=== PATIENT | female | born 1950 | race Caucasian/White ===

== ENCOUNTER → 2018-07-06 | Outpatient (CLI) | payer OTHER, BC ==
[~2018-07-06] VITALS: Ht 157.5 cm; Wt 59.0 kg
[~2018-07-06] MED LIST: ACCUNEB SO1.25 MG/1 INH; ACYCLOVIR 800800 MG PO; BREO ELLIPTA 11 EACH INH; CYMBALTA60 MG PO; GABAPENTIN800 M1 PO; IRBESARTAN-HCT1 EAC1 PO; LOMOTIL TABLET1 EACH PO; METHOTREXATE 22.5 MG PO; OMEPRAZOLE 20 M20 M1 PO; SPIRIVA18 MCG INH
--- NOTE | ~2018-07-06 | P ---
[facility] [place] [address] PROCEDURE REPORT Name: ION NIX Room #: REG [facility]#: [id number] Admission: 07/06/18 Attend Phys: Rene Barnard MD Discharge: Date of : 46 Report #: [id number] THIS REPORT FOR: //name// CC: JOMAR Barnard DATE OF SERVICE: 07/06/2018 BRIEF HISTORY: The patient is a 67-year-old woman with history of longstanding reflux disease, on omeprazole. She has intermittent solid food dysphagia. In addition, she has had chronic diarrhea of greater than 3 weeks. POSTOPERATIVE DIAGNOSES: 1. Moderate antral gastritis. 2. Dysphagia. MEDICATIONS: Deep sedation with propofol per anesthesia. SPECIMENS: 1. Small bowel biopsies, rule out celiac disease. 2. Biopsies of gastritis. ESTIMATED BLOOD LOSS: 3 mL PROCEDURE: Esophagogastroduodenoscopy with biopsy. FINDINGS: Prior to propofol sedation, procedure of upper endoscopy was discussed with the patient as well as potential risks and its complications. She indicates she understands and desires to proceed. DESCRIPTION OF PROCEDURE: With the patient in left lateral decubitus position, Olympus video endoscope was inserted in the cervical esophagus under direct vision without difficulty. Examination of this organ through its entire length revealed normal esophageal mucosa down the squamocolumnar junction. The squamocolumnar junction was inspected and noted to be unremarkable. There was no evidence of ulcers, erosions, strictures, mass lesions or Hoffman esophagus. A significant hiatus hernia was not seen. The scope was advanced in the stomach, which was examined on end view as well as retroflexed views. There was some material in the stomach likely related to medications she probably took earlier today. A small amount of fluid was seen and aspirated away. The mucosa was intact throughout. Examination of mucosa revealed diffuse erythema in the antrum of the stomach; however, no ulcers or erosions were seen. Upon retroflexion, the mucosa was normal. The cardia was normal. No mass lesions were seen. The pylorus was normal. Duodenal bulb and postbulbar sweep down the third portion were inspected and noted to be unremarkable. At that point, the [facility] [address] [place] [address] PROCEDURE REPORT Name: ION NIX Room #: REG [facility]#: [id number] Admission: 07/06/18 Attend Phys: Rene Barnard MD Discharge: Date of : 46 Report #: [id number] scope was slowly withdrawn and careful circumferential views were obtained. We obtained small bowel biopsies to evaluate for celiac disease in view of her diarrhea and also gastric biopsies to evaluate for H. pylori. The scope was withdrawn. The patient tolerated the procedure well. Subsequently, she was dilated with passage of 52-Syriac Shaw dilator. There was no resistance. CONDITION OF THE PATIENT UPON DISCHARGE: Following procedure, the patient was drowsy and prepared for colonoscopy. INSTRUCTIONS TO THE PATIENT AND FAMILY AT THE TIME OF DISCHARGE: We will follow up on biopsies obtained today. She takes omeprazole 20 mg twice daily. I advised her to use the lowest dose to control her symptoms. For dysphagia, a definite stricture or ring was not seen. She is to return on an as needed basis for dilation of the esophagus due to recurrent symptoms of dysphagia. Proceed with colonoscopy at this time. By: 0848 1736 Rene Barnard MD /nt
--- NOTE | ~2018-07-06 | P ---
[facility] [place] [address] PROCEDURE REPORT Name: ION NIX Room #: REG [facility]#: [id number] Admission: 07/06/18 Attend Phys: Rene Barnard MD Discharge: Date of : 46 Report #: [id number] THIS REPORT FOR: //name// CC: DAE Barnard DATE OF SERVICE: 07/06/2018 BRIEF HISTORY: The patient is a 67-year-old woman with change in bowel habits with more than 3 months of loose and watery stools. PREOPERATIVE DIAGNOSIS: Change in bowel habits. POSTOPERATIVE DIAGNOSIS: Mild sigmoid diverticulosis coli. MEDICATIONS: Deep sedation with propofol per anesthesia. SPECIMENS: 1. Random biopsies of proximal colon, rule out microscopic colitis. 2. Random biopsies of distal colon and rectum. ESTIMATED BLOOD LOSS: 5 mL PROCEDURE: Colonoscopy to cecum and terminal ileum with biopsy. FINDINGS: Prior to propofol sedation, procedure of colonoscopy discussed with the patient as well as potential risks and its complications. She indicates she understands and desires to proceed. DESCRIPTION OF PROCEDURE: With the patient in left lateral decubitus position, digital examination was completed, which revealed no abnormalities. Subsequently, the Olympus video colonoscope was introduced in the rectum, advanced under direct vision to the cecum. This was done with minimal difficulty. The cecum was identified by the ileocecal valve and the appendiceal orifice. I was able to visualize the distal segment of the terminal ileum, which was inspected and noted to be unremarkable. There was no evidence of inflammatory bowel disease. At that point, the scope was slowly withdrawn and careful circumferential views obtained including retroflexion of scope in the ascending colon. Upon slow withdrawal of the scope, the prep was excellent. The mucosa was within normal limits, normal vascular pattern and normal light reflex. As we withdrew the scope, no neoplastic or inflammatory changes were seen. Multiple random biopsies were obtained from the proximal colon as well as the distal colon to evaluate for microscopic colitis. As we withdrew the scope through the sigmoid colon, a few diverticula were seen. There was no endoscopic evidence of diverticulitis. The scope was withdrawn into the rectum, [facility] [address] [place] [address] PROCEDURE REPORT Name: ION NIX MICHEAL Room #: REG [facility].#: [id number] Admission: 07/06/18 Attend Phys: Rene Barnard MD Discharge: Date of : 46 Report #: [id number] abnormalities were seen. Upon retroflexion, no abnormalities were seen; however, one of the biopsy sites in the very distal rectum continued to ooze bright red blood. This area was observed and bright red blood continued to stream from the biopsy site. We then placed a single hemostatic clip and there was complete cessation of the oozing of blood. The scope was withdrawn. The patient tolerated the procedure well. CONDITION OF THE PATIENT UPON DISCHARGE: Following the procedure, the patient was drowsy, arousable, conversant and will be discharged home when fully ambulatory. INSTRUCTIONS TO THE PATIENT AND FAMILY AT THE TIME OF DISCHARGE: I do not see endoscopic evidence of colitis on today's exam. We will follow up on biopsies obtained today. At this point in time, would continue to use Imodium for diarrhea. If the biopsies are negative, may need to consider possible this may be medication related. She will return to the care of Dr. Dae De Los Santos and return to see me as needed. For screening purposes, suggest followup colon exam in 10 years. By: 0923 1803 Rene Barnard MD /nt
--- NOTE | 2018-07-07 18:05 | PATH ---
[facility] [place] [address] [place] [address] PATHOLOGY RPT PROCEDURE Name: ELINOR MCKENZIE MICHEAL Room #: REG [facility]#: [id number] Admission: 07/06/18 Date of : 46 Discharge: Report #: [id number] Path Case #: [id number] [facility] Accession Number: [id number] . 01 Material submitted: . PART A: SMALL BOWEL BIOPSIES R/O CELIAC PART B: GASTRITIS R/O H. PYLORI BIOPSIES PART C: RANDOM BIOPSIES PROXIMAL COLON RE:DIARRHEA R/O MICROSCOPIC COLITIS PART D: RANDOM BIOPSIES DIS COLON AND RECTUM RE:DIARRHEA R/O MICROSCOPIC CO . 01 Clinician provided ICD-10: n . 01 Clinical history: . Pre-OP DX: Reflux, dysphagia, diarrhea Post-OP DX: Gastritis, dysphagia, diverticulosis . 02 Diagnosis: A. Small bowel mucosa, R/O celiac, endoscopic biopsy: - No diagnostic abnormalities present. - Negative for villous blunting or increase in intraepithelial lymphocytes. . B. Gastric mucosa, gastritis R/O H. pylori, endoscopic biopsy: - Moderate reactive gastropathy. - Negative for intestinal metaplasia or atrophy. - Negative for Helicobacter pylori (properly controlled immunohistochemical stain performed). . C. Large intestinal mucosa, random proximal colon R/O microscopic colitis, endoscopic biopsy: - Mild increase in subepithelial collagen associated with denuded epithelium and moderately cellular lamina propria, findings highly suspicious for collagenous colitis (please see comment). - Negative for dysplasia or malignancy. . D. Large intestinal mucosa, distal colon and rectum, endoscopic biopsy: - Mild increase in subepithelial collagen associated with denuded epithelium and moderately cellular lamina propria, findings highly suspicious for collagenous colitis (please see comment). - Negative for dysplasia or malignancy. (IUV:vikas; 07/07/2018) QMS/07/07/2018 . 02 Comment: Part C and D: Examination shows mild subepithelial thickening of the collagen layer. Crypt architectural distortion, or crypt abscess [address] [address] PATHOLOGY RPT PROCEDURE Name: ELINOR MCKENZIE Room #: REG [facility].#: [id number] Admission: 07/06/18 Date of : 46 Discharge: Report #: [id number] Path Case #: [id number] formation is not identified, although a rare focus of acute cryptitis is present. The lamina propria similarity is comprised of lymphocytes, plasma cells, and eosinophils. There are no granulomata or viral inclusions present. All the fragments sampled show a similar degree of inflammation along with involvement. Few fragments show a stripped off surface epithelium. These findings are highly suspicious for collagenous colitis. Lack of the acute surface epithelial inflammation argues against infectious colitis. Lack of architectural abnormalities argues against inflammatory bowel disease. Please correlate clinically. (IUV:vikas; 07/07/2018) . 02 Electronically signed: . Airam Cardenas MD, Pathologist NPI- [id number] . 01 Gross description: . A. Received in formalin labeled "JonahElinor, small bowel biopsies," are 5 segments of jason soft tissue measuring 0.6 x 0.4 x 0.2 cm in aggregate dimensions and ranging from 0.3 to 0.4 cm in maximum dimension. The specimen is submitted entirely in cassette A1. . B. Received in formalin labeled "Jonah Elinor, gastritis, rule out H. pylori," are 5 segments of jason soft tissue measuring 1.0 x 0.8 x 0.2 cm in aggregate dimensions and ranging from 0.3 to 0.5 cm in maximum dimension. The specimen is submitted entirely in cassette B1. . C. Received in formalin labeled "Elinor Mckenzie, random biopsies, proximal colon Re: Diarrhea, rule out microscopic colitis," are 6 segments of jason soft tissue measuring 1.2 x 1.0 x 0.2 cm in aggregate dimensions and ranging from 0.3 to 0.5 cm in maximum dimension. The specimen is submitted entirely in cassette C1. . D. Received in formalin labeled "Dean Mckenziea, random biopsies, distal colon and rectum, Re: Diarrhea, rule out microscopic colitis," are multiple segments of jason soft tissue measuring 1.5 x 0.4 x 0.1 cm in aggregate dimensions. The specimen is filtered and entirely submitted in cassette D1. (TSD; 07/06/2018) TOB/TOB . 02 Pathologist provided ICD-10: K31.9, K63.9, K21.9, R13.10, R19.7 . 02 CPT . 216752, 609565, 477640, 566950, U11663 Specimen Comment: A courtesy copy of this report has been sent to Specimen Comment: [phone], . Specimen Comment: Report sent to / DR ROSARIO [facility] [address] [place] [address] PATHOLOGY RPT PROCEDURE Name: ELINOR MCKENZIE Room #: REG [facility] M..#: [id number] Admission: 07/06/18 Date of : 46 Discharge: Report #: [id number] Path Case #: [id number] Performed at: 01 [facility] [place] [address], [place], [place] [id number] MD Luis Carrizales MD Phone: [phone] Performed at: 02 [facility] [place] [address] [place], [place] [id number] MD Airam Cardenas MD Phone: [phone]
== END | disposition home or self-care (01) ==
LOC: GI 07:36
DX: K57.30 Diverticulosis of large intestine without perforation or abscess without bleeding (principal); R19.4 Change in bowel habit; K31.9 Disease of stomach and duodenum, unspecified; K29.50 Unspecified chronic gastritis without bleeding; R13.10 Dysphagia, unspecified; K21.9 Gastro-esophageal reflux disease without esophagitis; F41.9 Anxiety disorder, unspecified; F32.9 Major depressive disorder, single episode, unspecified; J43.9 Emphysema, unspecified; I10 Essential (primary) hypertension; G47.33 Obstructive sleep apnea (adult) (pediatric); I73.00 Raynaud's syndrome without gangrene; Z87.891 Personal history of nicotine dependence; Z98.890 Other specified postprocedural states; Z79.899 Other long term (current) drug therapy; Z88.2 Allergy status to sulfonamides; Z88.8 Allergy status to other drugs, medicaments and biological substances
CPT/HCPCS: 62110; 62900

== ENCOUNTER → 2020-03-02 | Outpatient (CLI) | payer OTHER, BC ==
[~2020-03-02] MED LIST changes: +ASA81BEC PO; +BIOTIN1 MG PO; +KINERET100 MG/0.6 INJECTION; +LIPITOR10 MG PO; +WOMEN'S 50 PLU1 EACH PO
== END ==
LOC: SJCVCIMAG 07:47
PROVIDERS: ATTEND Internal Medicine Cardiovascular Disease
DX: R94.31 Abnormal electrocardiogram [ECG] [EKG] (principal); I11.9 Hypertensive heart disease without heart failure; I45.10 Unspecified right bundle-branch block; E78.00 Pure hypercholesterolemia, unspecified; G45.9 Transient cerebral ischemic attack, unspecified; J44.9 Chronic obstructive pulmonary disease, unspecified; M06.9 Rheumatoid arthritis, unspecified; Z79.899 Other long term (current) drug therapy; Z87.891 Personal history of nicotine dependence

== ENCOUNTER → 2020-03-07 | Outpatient (CLI) | payer OTHER, BC ==
[~2020-03-07] VITALS: Ht 152.4 cm; Wt 59.0 kg
[2020-03-07 08:21] VITALS: BP 113/80
[2020-03-07 09:00] LABS: HEMOGLOBIN 11.8 gm/dL (12.0-15.0); MCH 39.1 pg (26.0-34.0); MCHC 33.6 g/dL (28.0-37.0); MCV 116.4 fL (80.0-100.0); RBC 3.01 mil/uL (4.20-5.00); RDW 15.6 % (10.5-14.5); WBC 8.9 thou/uL (4.0-11.0)
[2020-03-07 09:07] LABS: CALCIUM 9.2 mg/dL (8.5-10.1); CREATININE 1.2 mg/dL (0.6-1.0)
[2020-03-07 09:08] LABS: POTASSIUM 5.5 mmol/L (3.5-5.1)
--- NOTE | 2020-03-07 10:23 | EKG ---
[facility] [place] [address] [place] [address] ELECTROCARDIOGRAM REPORT Name: ION NIX Room #: REG [facility].#: [id number] Admission: 03/07/20 Attend Phys: Doe Mosquera MD, Discharge: Date of : 46 Report #: [id number] THIS REPORT FOR: cc: Dae De Los Santos MD, [place] H. MD Santiago, Patrick MD [facility] ~ THIS REPORT FOR: //name// [facility] Test Date: 2020-03-07 Test Time: 08:37:42 Pat Name: ION NIX Department: Room: Gender: F Corporate Investigator: RANGEL : 1950 Requested By: Doe Mosquera Order Number: [id number] MD: Mejia Merritt Measurements Intervals [place] Rate: 82 P: -22 NM: 106 QRS: -10 QRSD: 114 T: -10 QT: 377 QTc: 441 Interpretive Statements Sinus rhythm Short NM interval Incomplete right bundle branch block Compared to ECG 03/05/2007 13:22:52 No significant change Electronically Signed On 03-07-2020 10:23:16 CDT by Mejia Merritt [email or web address] <ELECTRONICALLY SIGNED> By: Mejia Merritt MD, FACC 03/07/20 1023 0837 Mejia Merritt MD, FAC /EPI
--- NOTE | 2020-03-09 16:44 | CATHLAB ---
[facility] [place] [address] [place] [address] INVASIVE PROCEDURE REPORT Name: ION NIX Room #: REG [facility] Schmidt#: [id number] Admission: 03/07/20 Attend Phys: Doe Mosquera MD, Discharge: Date of : 46 Report #: [id number] THIS REPORT FOR: cc: Dae De Los Santos MD, [place] H. MD Mancuso, Gerald M. MD [facility] ~ APPROVED REPORT Study performed: 03/07/2020 09:53:31 Patient Details Patient Status: Out-Patient Room #: The patient is a 69 year-old female Event Personnel Doe Moqsuera Information Receptionist, Patti Mejia RTR Monitor, Edna Cochran RTR Monitor, Shagufta Spring Sanders, Tony RN boilers inspector Performed [place] Access - R femoral vein Art Access - R femoral artery* Right and Left Heart Cath w/or w/o Coronarie [id number] [facility] Aortogram Abdominal Peripheral Angio 172454 Hemostasis w/ Mynx Hemostasis with Manual pressure 53151 Initial Mod Sed Same Phys/QHP Gr5y 012234 78586 Mod Sed Same Phys/QHP Ea 096320 Procedure Narrative The Right Groin^ was infiltrated with 1% Lidocaine subcutaneous anesthesia. A Right Heart Catheterization was performed with a 7 Fr. Elsmore-Denise catheter and pressure were recorded. Cardiac outputs were obtained by the Thermal Dilution method. A PINNACLE 6FR Sheath #[id number] sheath was inserted into the RFA^. Coronary angiography was performed using coronary diagnostic catheters. The right coronary system was accessed and visualized with a JR4 catheter. The left coronary system was accessed and visualized with a JL4 catheter. The left ventricle was accessed and visualized with a PIGTAIL catheter. Left ventriculogram was performed in 30 degree projection. An aortogram of the abdominal aorta was performed. Pre-demployment femoral angiogram was performed . Closure device was deployed with a Fr MYNXGRIP 6/7F #[id number]. The patient tolerated the procedure well and there were no complications associated with the procedure. There was no hematoma. Intraoperative Conscious Sedation [address] [address] INVASIVE PROCEDURE REPORT Name: KHURRAMNIKAJUANIION Room #: REG [facility]#: [id number] Admission: 03/07/20 Attend Phys: Doe Mosquera, Discharge: Date of : 46 Report #: [id number] Sedation start time: 11:21 Case end Time: 11:52 Fentanyl 50 mcg Versed 2 mg Fluoro Time: 4.00 minutes Dose: DAP 4824.60 cGycm2 604 mGy Contrast Type and Amount: Visipaque 135 ml Hemodynamics The right atrial mean pressure is 8 mmHg. The right ventricular pressure is 48/1 mmHg. The pulmonary artery pressure is 39/10 mmHg with a mean of 23 mmHg. The mean pulmonary capillary wedge pressure is 19 mmHg. The aortic pressure is 167/92 mmHg with a mean of mmHg. The left ventricular pressure is 157/0 mmHg with a mean of mmHg. The left ventricular end diastolic pressure is 24 mmHg. The cardiac output using thermo method is 4.10 L/min. The cardiac index using thermo method is 2.64 L/min/m2. Conclusion #1. Right heart catheterization performed with cardiac output by thermodilution. See above hemodynamics. #2 normal left jugular size and systolic function EF 60%. #3 abdominal aortogram reveals mild tortuosity but no aneurysm or significant stenosis. #4 left main moderate size free of disease giving rise to LAD and circumflex. #5 LAD widely patent relatively small in caliber extends to the apex. #6 circumflex OM nondominant widely patent #7 dominant right coronary widely patent. Recommendations and plan: Continue aggressive risk factor modification no indication for coronary intervention. <ELECTRONICALLY SIGNED> By: oDe Mosquera MD, FACC 03/09/20 1644 43 43 Doe Mosquera MD, FACC /INF
== END ==
LOC: CATH 07:46
PROVIDERS: ATTEND Internal Medicine Cardiovascular Disease
DX: I25.10 Atherosclerotic heart disease of native coronary artery without angina pectoris (principal); I10 Essential (primary) hypertension; M06.9 Rheumatoid arthritis, unspecified; F32.9 Major depressive disorder, single episode, unspecified; K21.9 Gastro-esophageal reflux disease without esophagitis; Z98.890 Other specified postprocedural states; Z79.899 Other long term (current) drug therapy; Z88.2 Allergy status to sulfonamides; Z88.8 Allergy status to other drugs, medicaments and biological substances; Z79.82 Long term (current) use of aspirin

== ENCOUNTER → 2020-12-07 | Outpatient (CLI) | payer OTHER, BC | LOC: SJCVC 11:25 | PROVIDERS: ATTEND Internal Medicine Cardiovascular Disease | DX: R94.31 Abnormal electrocardiogram [ECG] [EKG] (principal); R00.0 Tachycardia, unspecified; I44.4 Left anterior fascicular block; I25.10 Atherosclerotic heart disease of native coronary artery without angina pectoris; I45.10 Unspecified right bundle-branch block; I10 Essential (primary) hypertension; E78.00 Pure hypercholesterolemia, unspecified; G45.9 Transient cerebral ischemic attack, unspecified; M06.9 Rheumatoid arthritis, unspecified; J44.9 Chronic obstructive pulmonary disease, unspecified; Z86.73 Personal history of transient ischemic attack (TIA), and cerebral infarction without residual deficits; Z87.891 Personal history of nicotine dependence; Z72.89 Other problems related to lifestyle; Z79.82 Long term (current) use of aspirin; Z79.899 Other long term (current) drug therapy; Z88.2 Allergy status to sulfonamides; Z88.1 Allergy status to other antibiotic agents ==

== ENCOUNTER → 2021-03-27 | Outpatient (CLI) | payer OTHER, BC | LOC: SJCVC 10:16 | PROVIDERS: ATTEND Internal Medicine Cardiovascular Disease | DX: R94.31 Abnormal electrocardiogram [ECG] [EKG] (principal); I45.19 Other right bundle-branch block; I25.10 Atherosclerotic heart disease of native coronary artery without angina pectoris; I10 Essential (primary) hypertension; E78.00 Pure hypercholesterolemia, unspecified; I45.10 Unspecified right bundle-branch block; G45.9 Transient cerebral ischemic attack, unspecified; M06.9 Rheumatoid arthritis, unspecified; J44.9 Chronic obstructive pulmonary disease, unspecified; E78.5 Hyperlipidemia, unspecified; Z86.73 Personal history of transient ischemic attack (TIA), and cerebral infarction without residual deficits; Z79.82 Long term (current) use of aspirin; Z79.899 Other long term (current) drug therapy; Z87.891 Personal history of nicotine dependence; Z72.89 Other problems related to lifestyle; Z88.2 Allergy status to sulfonamides; Z88.8 Allergy status to other drugs, medicaments and biological substances ==